=== PATIENT | female | born 1970 | race African-American/Black ===

== ENCOUNTER 2023-02-25 09:47 | Emergency (ER) | payer SELFPAY ==
[~2023-02-25] VITALS: Ht 172.7 cm; Wt 71.0 kg
[2023-02-25 10:00] VITALS: BP 138/81
[2023-02-25] MEDS ORDERED: ACETAMINOPHEN 325MG TABLET PO ONE (10:15)
[2023-02-25] MEDS ORDERED: IBUP-2029 MT (11:29)
== END 2023-02-25 11:53 | disposition home or self-care (01) ==
LOC: ER 09:56
DX: M79.641 Pain in right hand (principal)
CPT/HCPCS: 29125; 73090; 73110; 73130; 99284